=== PATIENT | male | born 1940 | race Caucasian/White ===

== ENCOUNTER 2017-05-23 08:36 | Emergency (ER) | payer MEDICARE, OTHER ==
[2017-05-23 09:24] VITALS: BP 192/94
--- NOTE | 2017-05-23 09:28 | RAD ---
HISTORY: Fall, left wrist. COMPARISONS: None VIEWS: 3, Frontal, lateral, and oblique views of the left wrist FINDINGS: BONE DENSITY: Normal. 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 SOFT TISSUES: Unremarkable. OTHER FINDINGS: None. IMPRESSION: NONDISPLACED FRACTURE OF THE DISTAL RADIAL METAPHYSIS
--- NOTE | 2017-05-23 09:29 | RAD ---
HISTORY: Fall, left anterior rib pain COMPARISONS: August 11, 2003 VIEWS: 4: Frontal dual-energy and lateral views of the chest. FINDINGS: CARDIOMEDIASTINAL SILHOUETTE: The cardiomediastinal silhouette is normal. PALAK: The palak are normal. PLEURA: The costophrenic angles are sharp. No pleural abnormalities are noted. LUNG PARENCHYMA: The lungs are clear. ABDOMEN: The upper abdomen is clear. There is no subphrenic gas. BONES AND SOFT TISSUES: No bone or soft tissue abnormalities are noted. OTHER: None. IMPRESSION: NO ACTIVE CARDIOPULMONARY DISEASE.
--- NOTE | 2017-05-23 09:30 | RAD ---
HISTORY: Fall, left anterior rib pain COMPARISONS: Chest x-ray dated May 23, 2017 VIEWS: 7, Frontal view of the chest with frontal and oblique views of the left hemithorax FINDINGS: There is no displaced rib fracture or pneumothorax. The visualized lungs are clear. 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
--- NOTE | 2017-05-23 09:54 | UC ---
chelsea Livingston Timothy, scribed for Bridgette Sandoval MD on 05/23/17 at 0851 . Upper Extremity HPI - HPI Summary HPI Summary: Moses Vincent is 77 yo male presenting to [facility] with left chest wall and 2/10 left wrist pain and swelling S/P tripping on a step and falling last night. Pt present in room. No strike head, no LOC. Pt states his left arm folded under his left breast when he fell causing pain to chest wall and wrist. He notes limited ROM of his left wrist, with full ROM of his fingers. His left chest is slightly painful with cough or sneeze. He denies any LOC, blood from eyes, ears, nose, or mouth. No internal cp, sob. Pt RHD. No abd pain, no n/v. no other injuries. He has self-medicated with advil with relief. No anticoagulation His MHx includes GERD, cholecystectomy .Pt medication list reviewed this visit. - History of Current Complaint Stated Complaint: FELL CHEST AND WRIST INJURY Time Seen by Provider: 05/23/17 09:27 Hx Obtained From: Patient Onset/Duration: Sudden Onset, Lasting Hours, Still Present Severity Initially: Moderate Severity Currently: Moderate Pain Intensity: 2 Pain Scale Used: 0-10 Numeric Location Of Pain: Is Discrete @ - left wrist, left chest Aggravating Factor(s): Movement Alleviating Factor(s): OTC Meds Associated Signs And Symptoms: Positive: Swelling - Allergies/Home Medications Allergies/Adverse Reactions: Allergies Allergy/AdvReac Type Severity Reaction Status Date / Time No Known Allergies Allergy Verified 05/23/17 08:39 Home Medications: Home Medications Ibuprofen TAB* [Advil TAB*] 2 tab PO PRN 05/23/17 [History] Omeprazole [Prilosec] 1 PO DAILY 05/23/17 [History] PMH/Surg Hx/FS Hx/Imm Hx Previously Healthy: Yes GI/ History: Gastroesophageal Reflux - Surgical History Surgical History: Yes Surgery Procedure, Year, and Place: cholecystectomy - Family History Known Family History: Positive: Cardiac Disease Negative: Hypertension, Diabetes - Social History Occupation: Retired Alcohol Use: Occasionally Substance Use Type: None Smoking Status (MU): Never Smoked Tobacco Review of Systems Constitutional: Negative Skin: Negative Eyes: Negative ENT: Negative Respiratory: Negative Cardiovascular: Chest Pain - chest wall pain Gastrointestinal: Negative Genitourinary: Negative Motor: Other - left wrist pain with ROM Neurovascular: Negative Musculoskeletal: Other: - left wrist pain Neurological: Negative Psychological: Negative All Other Systems Reviewed And Are Negative: Yes Physical Exam Triage Information Reviewed: Yes Vital Signs: Initial Vital Signs Temp 98.1 F 05/23/17 08:40 Pulse 56 05/23/17 08:40 Resp 18 05/23/17 08:40 BP 199/70 05/23/17 08:40 Pulse Ox 100 05/23/17 08:40 Vital Signs Reviewed: Yes Eye Exam: Normal Eyes: Positive: Conjunctiva Clear ENT: Positive: Hearing grossly normal, Pharynx normal, TMs normal - no hemotypm b/l, no septal hematoma b/l, no blood oropharynx Dental Exam: Normal Neck exam: Normal Neck: Positive: Supple, Nontender Respiratory Exam: Normal Respiratory: Positive: Chest non-tender, Lungs clear, Normal breath sounds, No respiratory distress, No accessory muscle use Cardiovascular Exam: Normal Cardiovascular: Positive: RRR, No Murmur, Pulses Normal - 2+ radial, 2+ ulna, Other: - mild anterior chest wall pain - left inferior breast. No crepitus Abdominal Exam: Normal Abdomen Description: Positive: Nontender, No Organomegaly, Soft Bowel Sounds: Positive: Present Musculoskeletal Exam: Normal Musculoskeletal: Positive: Other: - No pain c/t/l/s Full AROM c spine Full AROM shoulders, elbow left wrist: + ttp distal radius No pain along ulna No snuffbox pain no pain along ph Neurological Exam: Normal Neurological: Positive: Other: - + thumb up, a ok, finger spread, finger cross Psychological Exam: Normal Skin Exam: Normal Procedures - Procedure Summary Procedure Summary: Left wrist was splinted with no complications. Pt tolerated procedure well. + CSM intact before and after splint application placed in sling, ice - Splinting Location: Left wrist shortarm Hand-Made Type: orthoglass Splint: volar Pre-Proc Neuro Vasc Exam: normal Post-Proc Neuro Vasc Exam: normal, unchanged from pre-exam Diagnostics - Radiology L Wrist XR Xray Interpretation: Positive (See Comments) - IMPRESSION: NONDISPLACED FRACTURE OF THE DISTAL RADIAL METAPHYSIS Radiology Interpretation Completed By: Radiologist CXR Xray Interpretation: No Acute Changes - IMPRESSION: NO ACTIVE CARDIOPULMONARY DISEASE. Radiology Interpretation Completed By: Radiologist rib XR Xray Interpretation: No Acute Changes - IMPRESSION: NO DISPLACED RIB FRACTURE OR PNEUMOTHORAX. Radiology Interpretation Completed By: Radiologist Re-Evaluation - Re-Evaluation First Eval Re-Evaluation Time: 09:46 Change: Unchanged Comment: Splint was applied to Pt left wrist Upper Extremity Course/Dx - Course Course Of Treatment: Moses Vincent is a 77 yo male presenting to [facility] with 2/10 LUE wrist pain and left sided anterior chest pain S/P tripping and falling on a step last night. Pt medication list reviewed this visit. Pt BP noted at 192/94, Pt counseled to follow up with PCP. His L wrist XR suggests nondisplaced fracture of the distal radial metaphysis. His CXR suggests no active cardiopulmonary disease. His Rib XR suggests no displaced rib fracture or pneumothorax. After clinical examination and review fo his imaging studies, as well as procedural application of a splint, he will be discharged home with appropriate instructions and follow up. - Differential Dx/Diagnosis Differential Diagnosis/HQI/PQRI: Fracture (Closed), Strain, Sprain Provider Diagnoses: left wrist fracture, chest wall contusion Discharge - Discharge Plan Condition: Stable Disposition: HOME Patient Education Materials: Wrist Fracture in Adults (ED), Hypertension (ED) Referrals: Adam Bills MD [Primary Care Provider] - 2 Days Joanna Montague MD [Medical Doctor] - As Soon As Possible Additional Instructions: Wear splint until you are seen by orthopedics in follow-up. Dr. Montague is the orthopedic mattress and foundation sewer today. She works with Dr. Beebe. When you call the office to schedule, you may request Dr. Beebe as you have previously been evaluated by her wear sling for comfort Apply ice (wrapped in a towel) 20 minute at a time, 2-3 times a day Elevate your arm to help with swelling and pain Okay to alternate ibuprofen (Advil, motrin) and tylenol every 3 hours for pain. Take with food. Do NOT Take for more than 4-5 days Your blood pressure was elevate today - contact your doctor for a recheck and follow-up It is important that you take deep, slow breaths several times a day to prevent pneumonia Call your doctor or return with questions or concerns Please follow up with your primary care physician and the orthopedist provided ( Dr. Montague) regarding your visit to urgent care today. Return to urgent care or the emergency department with any new or recurring symptoms. The documentation as recorded by the chelsea devine Timothy accurately reflects the service I personally performed and the decisions made by me, Bridgette Sandoval MD.
== END 2017-05-23 10:00 | disposition home or self-care (01) ==
LOC: UCEAST 08:36
DX: S52.592A Other fractures of lower end of left radius, initial encounter for closed fracture (principal); W10.9XXA Fall (on) (from) unspecified stairs and steps, initial encounter; Z91.81 History of falling; Y93.9 Activity, unspecified; Y92.9 Unspecified place or not applicable; Y99.9 Unspecified external cause status; R07.81 Pleurodynia; K21.9 Gastro-esophageal reflux disease without esophagitis
CPT/HCPCS: 71020; 99203; G0463